=== PATIENT | female | born 1985 | race American Indian/Alaskan Native ===

== ENCOUNTER 2019-09-02 19:03 | Emergency (ER) | payer OTHER ==
--- NOTE | 2019-09-02 20:28 | Event Note ---
ED Screening Note Date of service: 09/02/19 Time: 20:24 ED Screening Note: 33 yo female present to ER c/o pain under right breast pain x 3 days. No known falls or injuries. No coughing fever or sob. Dx with HTN many years ago. Not taking any medications. Blood pressure 234/143. Denies headache dizziness or blurry vision. This initial assessment/diagnostic orders/clinical plan/treatment(s) is/are subject to change based on patients health status, clinical progression and re- assessment by fellow clinical providers in the ED. Further treatment and workup at subsequent clinical providers discretion. Patient/guardian urged not to elope from the ED as their condition may be serious if not clinically assessed and managed. Initial orders include: CBC,CMP IV,
[2019-09-02 21:16] LABS: Hematocrit 42.3 % (30.3-42.9); Hemoglobin 14.7 gm/dl (10.1-14.3); Mean Corpuscular HGB Conc 35 % (30-34); Mean Corpuscular Volume 85 fl (79-97); Platelet Count 296 K/mm3 (140-440); Red Blood Count 4.95 M/mm3 (3.65-5.03); Red Cell Distribution Width 13.8 % (13.2-15.2)
[2019-09-02 21:35] LABS: Alanine Aminotransferase 16 units/L (7-56); Albumin 3.8 g/dL (3.9-5); BUN/Creatinine Ratio 15; Blood Urea Nitrogen 9 mg/dL (7-17); Calcium 9.5 mg/dL (8.4-10.2); Hemolysis Index 28
[2019-09-02] MEDS ORDERED: INSULIN REGULAR, HUMAN 100 UNITS/1 ML IV ONE (21:50)
[2019-09-02] MEDS ORDERED: hydrALAZINE 20 MG/1 ML INJ IV ONE (21:50)
[2019-09-02] MEDS ORDERED: SODIUM CHLORIDE 0.9% 500 ML 500 ML IV ONE (21:50)
[2019-09-02] MEDS ORDERED: ACETAMINOPHEN 500 MG TAB PO ONE (21:50)
[2019-09-02] MEDS ORDERED: POTASSIUM CHLORIDE ER 20 MEQ TAB PO ONE (21:52)
--- NOTE | 2019-09-02 21:56 | Emergency Department Report ---
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 She is not known to this provider previously. She does not believe that she is . She states that she does not have a local primary care doctor. Past medical history includes hypertension and diabetes. Noncompliant with medications for months. Presents to the ER today with complaint of nontraumatic right lateral thoracic and right upper quadrant pain, intermittent for a few days, and sensation of hea rt beating and heart racing. Also endorses cough and yellow mucous. Makes no complaint of headache, neck pain, chest pain, lower abdominal pain. No shortness of breath. No irritative or obstructive urinary symptoms. Denies DVT, pulmonary embolus risk factors. -: Gradual Location: chest, abdomen Radiation: non-radiation Quality: aching Consistency: intermittent Improves with: none Worsens with: none - Related Data Previous Rx's Medication Instructions Recorded Last Taken Type Acetaminophen [Non-Aspirin Extra 500 mg PO Q6HR PRN #30 tablet 09/03/19 Unknown Rx Strength] Albuterol Sulfate [Proair 90 mcg IH Q4HR PRN #2 aer.[email or web address] 09/03/19 Unknown Rx Respiclick] Amlodipine Besylate [Norvasc] 5 mg PO QDAY #30 tablet 09/03/19 Unknown Rx Ibuprofen [Motrin] 600 mg PO Q8H PRN #30 tablet 09/03/19 Unknown Rx Allergies Allergy/AdvReac Type Severity Reaction Status Date / Time No Known Allergies Allergy Verified 09/02/19 19:47 ED Review of Systems ROS: Stated complaint: PALPITATION/RT UPPER RIB PAIN Other details as noted in HPI Constitutional: malaise. denies: fever Eyes: denies: eye discharge ENT: denies: congestion Respiratory: cough Cardiovascular: palpitations Gastrointestinal: abdominal pain. denies: nausea, vomiting Genitourinary: denies: dysuria Musculoskeletal: denies: myalgia Skin: denies: lesions Neurological: denies: weakness Psychiatric: anxiety ED Past Medical Hx - Past Medical History Previous Medical History?: Yes Hx Hypertension: Yes (doesn't take medications) - Surgical History Past Surgical History?: Yes Additional Surgical History: c-sections x 3 - Social History Smoking Status: Never Smoker Substance Use Type: Alcohol - Medications Home Medications: Home Medications Medication Instructions Recorded Confirmed Last Taken Type Acetaminophen [Non-Aspirin Extra 500 mg PO Q6HR PRN #30 tablet 09/03/19 Unknown Rx Strength] Albuterol Sulfate [Proair 90 mcg IH Q4HR PRN #2 aer.[email or web address] 09/03/19 Unknown Rx Respiclick] Amlodipine Besylate [Norvasc] 5 mg PO QDAY #30 tablet 09/03/19 Unknown Rx Ibuprofen [Motrin] 600 mg PO Q8H PRN #30 tablet 09/03/19 Unknown Rx ED Physical Exam - General Limitations: No Limitations General appearance: alert, anxious, obese - Head Head exam: Present: atraumatic, normocephalic - Eye Eye exam: Present: normal appearance, EOMI. Absent: nystagmus - ENT ENT exam: Present: normal exam, normal orophraynx, mucous membranes moist, normal external ear exam - Neck Neck exam: Present: normal inspection, full ROM. Absent: tenderness, meningismus - Respiratory Respiratory exam: Present: normal lung sounds bilaterally. Absent: respiratory distress, wheezes, rales, rhonchi, stridor - Cardiovascular Cardiovascular Exam: Present: normal rhythm, tachycardia, normal heart sounds. Absent: systolic murmur, diastolic murmur, rubs, gallop - GI/Abdominal GI/Abdominal exam: Present: soft. Absent: distended, tenderness, guarding, rebound, rigid, pulsatile mass - Extremities Exam Extremities exam: Present: normal inspection, full ROM, other (2+ pulses noted in the bilateral upper and lower extremities. There is no palpable cord. negative Homans sign. Muscular compartments are soft. The pelvis is stable.). Absent: pedal edema, joint swelling, calf tenderness - Back Exam Back exam: Present: normal inspection, full ROM. Absent: tenderness, CVA tenderness (R), paraspinal tenderness, vertebral tenderness - Neurological Exam Neurological exam: Present: alert, normal gait, other (there is no facial droop. The tongue is midline. The extraocular movements are intact bilaterally. Speaking in full sentences. Minimal elevation of the base of the tongue. There is 5 out of 5 strength in the bilateral upper and lower extremities, and sensation is intact to light touch in the bilateral upper and lower extremities. Appropriate insight.). Absent: motor sensory deficit - Psychiatric Psychiatric exam: Present: anxious - Skin Skin exam: Present: warm, dry, intact, normal color. Absent: rash ED Course Vital Signs 09/02/19 09/02/19 09/02/19 20:21 22:15 22:48 Temperature 98.4 F Pulse Rate 102 H 102 H 104 H Respiratory 18 15 Rate Blood Pressure 234/143 262/158 Blood Pressure 224/130 [Left] O2 Sat by Pulse 96 98 Oximetry 09/02/19 09/02/19 09/03/19 23:20 23:55 00:30 Temperature Pulse Rate 95 H 101 H 93 H Respiratory 16 20 Rate Blood Pressure Blood Pressure 192/117 193/116 187/118 [Left] O2 Sat by Pulse 99 97 Oximetry - Reevaluation(s) Reevaluation #1: 09/02/19 23:47 Differential diagnosis, including but not limited to: Bronchitis, arrhythmia, electrolyte derangement, thyroid derangement, pneumonia, pulmonary embolism, urinary tract infection, biliary colic, pyelonephritis, costochondritis Assessment and plan: 33-year-old female with the primary complaint of nontraumatic right lateral thoracic pain, and palpitations. She is afebrile, hypertensive markedly, as well as tachycardic. She appears to be fairly anxious. Given extreme hypertension, CT scan of the chest will be obtained to exclude pulmonary embolism, as well as aortic disease. Given extreme hypertension, CT scan abdomen pelvis will be obtained to evaluate for AAA, and other vascular emergencies. Vital signs improved after hydralazine. Patient appears comfortable at this time. Laboratory studies reviewed and appreciated. Potassium supplementation has been ordered. Reevaluation #2: 09/03/19 00:57 CT scan of the chest is negative for acute disease. CT scan of the abdomen pelvis is negative for acute disease. Hyperglycemia improved. Hypertension improved. Patient does not appear to have an emergent medical condition at this time. She will need to follow up with an outpatient primary care doctor for her presumed chronic hypertension and diabetes ED Medical Decision Making - Lab Data Result diagrams: 09/02/19 20:42 09/02/19 20:42 Vital Signs 09/02/19 09/02/19 09/02/19 20:21 22:15 22:48 Temperature 98.4 F Pulse Rate 102 H 102 H 104 H Respiratory 18 15 Rate Blood Pressure 234/143 262/158 Blood Pressure 224/130 [Left] O2 Sat by Pulse 96 98 Oximetry 09/02/19 23:20 Temperature Pulse Rate 95 H Respiratory 16 Rate Blood Pressure Blood Pressure 192/117 [Left] O2 Sat by Pulse 99 Oximetry Lab Results 09/02/19 09/02/19 09/02/19 Range/Units 20:42 20:42 21:56 WBC 5.6 (4.5-11.0) K/mm3 RBC 4.95 (3.65-5.03) M/mm3 Hgb 14.7 H (10.1-14.3) gm/dl Hct 42.3 (30.3-42.9) % MCV 85 (79-97) fl MCH 30 (28-32) pg MCHC 35 H (30-34) % RDW 13.8 (13.2-15.2) % Plt Count 296 (140-440) K/mm3 PT 12.4 (12.2-14.9) Sec. INR 0.92 (0.87-1.13) APTT 27.0 (24.2-36.6) Sec. D-Dimer (0-234) ng/mlDDU Sodium 136 L (137-145) mmol/L Potassium 3.2 L (3.6-5.0) mmol/L Chloride 95.6 L (98-107) mmol/L Carbon Dioxide 27 (22-30) mmol/L Anion Gap 17 mmol/L BUN 9 (7-17) mg/dL Creatinine 0.6 L (0.7-1.2) mg/dL Estimated GFR > 60 ml/min BUN/Creatinine Ratio 15 % Glucose 358 H (65-100) mg/dL Calcium 9.5 (8.4-10.2) mg/dL Magnesium (1.7-2.3) mg/dL Total Bilirubin 0.40 (0.1-1.2) mg/dL AST 14 (5-40) units/L ALT 16 (7-56) units/L Alkaline Phosphatase 94 (35-129) units/L Total Creatine Kinase (30-135) units/L Total Protein 7.0 (6.3-8.2) g/dL Albumin 3.8 L (3.9-5) g/dL Albumin/Globulin Ratio 1.2 % TSH (0.270-4.200) mlU/mL Free T4 (0.76-1.46) ng/dL HCG, Quant (0-4) mIU/mL Urine Color (Yellow) Urine Turbidity (Clear) Urine pH (5.0-7.0) Ur Specific [place] (1.003-1.030) Urine Protein (Negative) mg/dL Urine Glucose (UA) (Negative) mg/dL Urine Ketones (Negative) mg/dL Urine Blood (Negative) Urine Nitrite (Negative) Urine Bilirubin (Negative) Urine Urobilinogen (<2.0) mg/dL Ur Leukocyte Esterase (Negative) Urine WBC (Auto) (0.0-6.0) /HPF Urine RBC (Auto) (0.0-6.0) /HPF U Epithel Cells (Auto) (0-13.0) /HPF Urine Mucus /HPF Urine HCG, Qual (Negative) 09/02/19 09/02/19 09/02/19 Range/Units 21:56 21:56 21:56 WBC (4.5-11.0) K/mm3 RBC (3.65-5.03) M/mm3 Hgb (10.1-14.3) gm/dl Hct (30.3-42.9) % MCV (79-97) fl MCH (28-32) pg MCHC (30-34) % RDW (13.2-15.2) % Plt Count (140-440) K/mm3 PT (12.2-14.9) Sec. INR (0.87-1.13) APTT (24.2-36.6) Sec. D-Dimer (0-234) ng/mlDDU Sodium (137-145) mmol/L Potassium (3.6-5.0) mmol/L Chloride (98-107) mmol/L Carbon Dioxide (22-30) mmol/L Anion Gap mmol/L BUN (7-17) mg/dL Creatinine (0.7-1.2) mg/dL Estimated GFR ml/min BUN/Creatinine Ratio % Glucose (65-100) mg/dL Calcium (8.4-10.2) mg/dL Magnesium 1.80 (1.7-2.3) mg/dL Total Bilirubin (0.1-1.2) mg/dL AST (5-40) units/L ALT (7-56) units/L Alkaline Phosphatase (35-129) units/L Total Creatine Kinase 64 (30-135) units/L Total Protein (6.3-8.2) g/dL Albumin (3.9-5) g/dL Albumin/Globulin Ratio % TSH 1.370 (0.270-4.200) mlU/mL Free T4 1.22 (0.76-1.46) ng/dL HCG, Quant (0-4) mIU/mL Urine Color (Yellow) Urine Turbidity (Clear) Urine pH (5.0-7.0) Ur Specific [place] (1.003-1.030) Urine Protein (Negative) mg/dL Urine Glucose (UA) (Negative) mg/dL Urine Ketones (Negative) mg/dL Urine Blood (Negative) Urine Nitrite (Negative) Urine Bilirubin (Negative) Urine Urobilinogen (<2.0) mg/dL Ur Leukocyte Esterase (Negative) Urine WBC (Auto) (0.0-6.0) /HPF Urine RBC (Auto) (0.0-6.0) /HPF U Epithel Cells (Auto) (0-13.0) /HPF Urine Mucus /HPF Urine HCG, Qual (Negative) 09/02/19 09/02/19 09/02/19 Range/Units 21:56 21:56 Unknown WBC (4.5-11.0) K/mm3 RBC (3.65-5.03) M/mm3 Hgb (10.1-14.3) gm/dl Hct (30.3-42.9) % MCV (79-97) fl MCH (28-32) pg MCHC (30-34) % RDW (13.2-15.2) % Plt Count (140-440) K/mm3 PT (12.2-14.9) Sec. INR (0.87-1.13) APTT (24.2-36.6) Sec. D-Dimer 182.2 (0-234) ng/mlDDU Sodium (137-145) mmol/L Potassium (3.6-5.0) mmol/L Chloride (98-107) mmol/L Carbon Dioxide (22-30) mmol/L Anion Gap mmol/L BUN (7-17) mg/dL Creatinine (0.7-1.2) mg/dL Estimated GFR ml/min BUN/Creatinine Ratio % Glucose (65-100) mg/dL Calcium (8.4-10.2) mg/dL Magnesium (1.7-2.3) mg/dL Total Bilirubin (0.1-1.2) mg/dL AST (5-40) units/L ALT (7-56) units/L Alkaline Phosphatase (35-129) units/L Total Creatine Kinase (30-135) units/L Total Protein (6.3-8.2) g/dL Albumin (3.9-5) g/dL Albumin/Globulin Ratio % TSH (0.270-4.200) mlU/mL Free T4 (0.76-1.46) ng/dL HCG, Quant < 2 (0-4) mIU/mL Urine Color Yellow (Yellow) Urine Turbidity Clear (Clear) Urine pH 7.0 (5.0-7.0) Ur Specific [place] 1.027 (1.003-1.030) Urine Protein 30 mg/dl (Negative) mg/dL Urine Glucose (UA) >=500 (Negative) mg/dL Urine Ketones Neg (Negative) mg/dL Urine Blood Lg (Negative) Urine Nitrite Neg (Negative) Urine Bilirubin Neg (Negative) Urine Urobilinogen < 2.0 (<2.0) mg/dL Ur Leukocyte Esterase Tr (Negative) Urine WBC (Auto) 13.0 H (0.0-6.0) /HPF Urine RBC (Auto) > 182.0 (0.0-6.0) /HPF U Epithel Cells (Auto) 8.0 (0-13.0) /HPF Urine Mucus Few /HPF Urine HCG, Qual Negative (Negative) - EKG Data -: EKG Interpreted by Ne Rate: tachycardia - EKG Data When compared to previous EKG there are: previous EKG unavailable 09/02/19 23:47 There is no prior EKG available for comparison. The EKG shows sinus tachycardia, 101 bpm, left axis deviation, left anterior fascicular block, QTC is prolonged, motion artifact, abnormal EKG, high left ventricular voltage, not consistent with ST elevation myocardial infarction. - Radiology Data Radiology results: report reviewed, image reviewed xr chest within normal limits Critical care attestation.: If time is entered above; I have spent that time in minutes in the direct care of this critically ill patient, excluding procedure time. ED Disposition Clinical Impression: Elevated blood pressure reading, Hyperglycemia, Palpitations, Rib pain on right side Disposition: DC- TO HOME OR SELFCARE Is pt being admited?: No Does the pt Need Aspirin: No Condition: Stable Additional Instructions: We will recommend that the patient follow-up with the primary care doctor within the next 3-4 weeks. Recommend exercise as tolerated, and modification of diet to avoid consumption of simple carbohydrates, sugar, and starch. Recommend weight loss as tolerated. Patient may reference the [place] diabetes Association website for specific recommendations on how to modify diet. Patient may take the pain medicine and cough medicine as needed. 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 Recommend aggressive weight loss, and gradual decrease of blood pressure. Patient was found to have elevated blood pressure and high blood sugar in the emergency room, which over long-term. Of time if not controlled may put the patient at risk for heart attack, stroke, disability, paralysis, loss of quality of life. Do not take metformin medication for the next 2 days, if patient takes this medication. Return to the emergency room right away with new, worsening or different symptoms, or symptoms not present on the initial emergency room evaluation. Referrals: [facility] [Provider Group] - 3-5 Days [facility] [Provider Group] - 3-5 Days [facility] [Provider Group] - 3-5 Days
[2019-09-02 22:01] LABS: Bilirubin,Urine NEG (Negative); Blood,Urine LG (Negative); Color,Urine Yellow (Yellow); Mucus,Urine FEW /HPF; Urobilinogen,Urine < 2.0 mg/dL (<2.0)
[2019-09-02 22:02] LABS: RBC,Urine > 182.0 /HPF (0.0-6.0)
[2019-09-02 22:03] LABS: HCG Qualitative,Urine Negative (Negative)
[2019-09-02 22:32] LABS: INR 0.92 (0.87-1.13)
[2019-09-02] MEDS: POTASSIUM CHLORIDE 10 MEQ 10 MEQ/100 ML BAG IV SCH ×2 (22:40→23:54)
--- NOTE | 2019-09-02 22:46 | XRay Report ---
CHEST 2 VIEWS INDICATION / CLINICAL INFORMATION: ruq pain cough tachycardia. COMPARISON: None available. FINDINGS: SUPPORT DEVICES: None. HEART / MEDIASTINUM: No significant abnormality. LUNGS / PLEURA: No significant pulmonary or pleural abnormality. No pneumothorax. ADDITIONAL FINDINGS: No significant additional findings. IMPRESSION: No significant abnormality Signer Name: Meliton Gallagher MD FACR Signed: 09/02/2019 10:41 PM Workstation Name: [id number]
[2019-09-02] MEDS ORDERED: SODIUM CHLORIDE 0.9% 1000 ML 1,000 ML ONE (23:20)
[2019-09-02] MEDS ORDERED: SODIUM CHLORIDE 0.9% 1000 ML 1,000 ML IV SCH (23:30)
--- NOTE | 2019-09-03 00:40 | Cat Scan Report ---
CT angiography of the chest with 2-D reconstructions INDICATION: Right-sided chest pain Thin section axial images were obtained as well as 2-D reformatted MIP images in all 3 planes FINDINGS: There is no hilar or mediastinal adenopathy. No pleural or pericardial effusion. Lung windo ws show no nodules, masses or infiltrates. There is no thoracic aortic aneurysm or dissection present . Routine axial images as well as 2-D reconstructions through the pulmonary arteries show no evidence of emboli. IMPRESSION: Negative chest CTA CT of the abdomen and pelvis with contrast INDICATION: Right upper quadrant pain FINDINGS: The liver, spleen, pancreas, adrenal glands and kidneys all appear normal. No definite gall bladder or biliary tree abnormality. No fluid or adenopathy in the upper abdomen. No gastric or duode nal wall thickening. The appendix is seen in the right upper quadrant and is normal. No fluid or wilfred opathy in the upper abdomen CT of the pelvis shows small follicular cysts in the left ovary. The right ovary contains a 2.[address] without free fluid. No hernia or bowel obstruction. No significant skeletal lesion. IMPRESSION: Right ovarian cyst without free fluid. The appendix is normal and there is no definite ga llbladder abnormality. Automated exposure control was utilized to diminish radiation dose. Signer Name: Estevan Moreno MD Signed: 09/03/2019 12:35 AM Workstation Name: [id number]
[2019-09-03] MEDS: POTASSIUM CHLORIDE 10 MEQ 10 MEQ/100 ML BAG IV SCH (01:09)
[2019-09-03 01:28] VITALS: BP 197/133
== END 2019-09-03 02:23 | disposition home or self-care (01) ==
LOC: ED 19:03
DX: R07.2 Precordial pain (principal); R00.2 Palpitations; E11.65 Type 2 diabetes mellitus with hyperglycemia; I10 Essential (primary) hypertension; Z79.899 Other long term (current) drug therapy
CPT/HCPCS: 36415; 71046; 71275; 74177; 80053; 81001; 81025; 82550; 82962; 83735; 84439; 84443; 84702; 85027; 85379; 85610; 85730; 87086; 93005; 93010; 96361; 96374; 96375; 99285; J0360; J3480; J7030; J7040; Q9967; J1815

== ENCOUNTER 2020-07-29 19:18 | Emergency (ER) | payer OTHER ==
[2020-07-29 19:56] VITALS: BP 228/148
[2020-07-29 20:39] LABS: Bacteria,Urine 1+ /HPF (Negative); Bilirubin,Urine NEG (Negative); Blood,Urine MOD (Negative); Color,Urine Yellow (Yellow); Mucus,Urine FEW /HPF; Urobilinogen,Urine < 2.0 mg/dL (<2.0)
[2020-07-29 20:45] LABS: Basophils # (Auto) 0.1 K/mm3 (0.0-0.1); Basophils % (Auto) 0.8 % (0.0-1.8); Eosinophils # (Auto) 0.1 K/mm3 (0.0-0.4); Eosinophils % (Auto) 0.8 % (0.0-4.3); Hematocrit 43.8 % (30.3-42.9); Hemoglobin 15.1 gm/dl (10.1-14.3); Lymphocytes # (Auto) 1.8 K/mm3 (1.2-5.4); Lymphocytes % (Auto) 22.5 % (13.4-35.0); Mean Corpuscular HGB Conc 35 % (30-34); Mean Corpuscular Volume 86 fl (79-97); Monocytes # (Auto) 0.5 K/mm3 (0.0-0.8); Monocytes % (Auto) 5.9 % (0.0-7.3); Platelet Count 344 K/mm3 (140-440); Red Blood Count 5.11 M/mm3 (3.65-5.03); Red Cell Distribution Width 14.2 % (13.2-15.2)
[2020-07-29 20:46] LABS: Protein,Urine >500 mg/dL (Negative)
[2020-07-29 21:08] LABS: Alanine Aminotransferase 18 units/L (7-56); Albumin 3.8 g/dL (3.9-5); Blood Urea Nitrogen 10 mg/dL (7-17); Calcium 9.6 mg/dL (8.4-10.2); Hemolysis Index 10
[2020-07-29 21:09] LABS: BUN/Creatinine Ratio 14
[2020-07-30] MEDS ORDERED: traMADol 50 MG TAB PO ONE (00:43)
[2020-07-30] MEDS ORDERED: cephALEXin 500 MG CAP PO ONE (00:43)
--- NOTE | 2020-07-30 00:48 | Emergency Department Report ---
ED General Adult HPI - General Chief complaint: Abdominal Pain Stated complaint: RT SIDE PAIN Time Seen by Provider: 07/30/20 00:20 Source: patient Mode of arrival: Stretcher Limitations: No Limitations - History of Present Illness Initial comments: Patient presents to the emergency department with a chief complaint of lower abdominal pain and difficulty with urination that has been present for the last day. Patient describes the pain as a fullness/sharpness. Patient denies a fever at home. Patient has no complaints -: Sudden Location: abdomen Radiation: non-radiation Severity scale (0 -10): 4 Quality: burning, sharp Consistency: constant Improves with: none Worsens with: none Associated Symptoms: denies other symptoms Treatments Prior to Arrival: none - Related Data Previous Rx's Medication Instructions Recorded Last Taken Type Albuterol Sulfate [Proair 90 mcg IH Q4HR PRN #2 [email or web address] 06/08/20 Unknown Rx Respiclick] Insulin NPH, Human [NovoLIN N] 20 unit SUB-Q BIDDIAB #1 vial 06/08/20 Unknown Rx Insulin Regular, Human [HumuLIN R] 0 unit SUB-Q ACHS #1 vial 06/08/20 Unknown Rx Losartan [Cozaar] 100 mg PO QDAY #30 tablet 06/08/20 Unknown Rx amLODIPine 10 mg PO QDAY #60 tablet 06/08/20 Unknown Rx carvediloL [Coreg] 6.25 mg PO BID #90 tablet 06/08/20 Unknown Rx levoFLOXacin [Levaquin] 750 mg PO QDAY #5 tablet 06/08/20 Unknown Rx metFORMIN [Glucophage] 850 mg PO BID #90 tablet 06/08/20 Unknown Rx cephALEXin [Keflex] 500 mg PO BID #14 capsule 07/30/20 Unknown Rx traMADoL [Ultram] 50 mg PO Q6HR PRN #24 tablet 07/30/20 Unknown Rx Allergies Allergy/AdvReac Type Severity Reaction Status Date / Time No Known Allergies Allergy Verified 09/02/19 19:47 ED Review of Systems ROS: Stated complaint: RT SIDE PAIN Other details as noted in HPI Comment: All other systems reviewed and negative Constitutional: denies: chills, fever Eyes: denies: eye pain, eye discharge, vision change ENT: denies: ear pain, throat pain Respiratory: denies: cough, shortness of breath, wheezing Cardiovascular: denies: chest pain, palpitations Endocrine: no symptoms reported Gastrointestinal: abdominal pain. denies: nausea, diarrhea Genitourinary: dysuria. denies: urgency, discharge Musculoskeletal: denies: back pain, joint swelling, arthralgia Skin: denies: rash, lesions Neurological: denies: headache, weakness, paresthesias Psychiatric: denies: anxiety, depression Hematological/Lymphatic: denies: easy bleeding, easy bruising ED Past Medical Hx - Past Medical History Previous Medical History?: Yes Hx Hypertension: Yes Hx Diabetes: Yes - Surgical History Past Surgical History?: Yes Additional Surgical History: c-sections x 3 - Social History Smoking Status: Never Smoker - Medications Home Medications: Home Medications Medication Instructions Recorded Confirmed Last Taken Type Albuterol Sulfate [Proair 90 mcg IH Q4HR PRN #2 aer.[email or web address] 06/08/20 Unknown Rx Respiclick] Insulin NPH, Human [NovoLIN N] 20 unit SUB-Q BIDDIAB #1 vial 06/08/20 Unknown Rx Insulin Regular, Human [HumuLIN R] 0 unit SUB-Q ACHS #1 vial 06/08/20 Unknown Rx Losartan [Cozaar] 100 mg PO QDAY #30 tablet 06/08/20 Unknown Rx amLODIPine 10 mg PO QDAY #60 tablet 06/08/20 Unknown Rx carvediloL [Coreg] 6.25 mg PO BID #90 tablet 06/08/20 Unknown Rx levoFLOXacin [Levaquin] 750 mg PO QDAY #5 tablet 06/08/20 Unknown Rx metFORMIN [Glucophage] 850 mg PO BID #90 tablet 06/08/20 Unknown Rx cephALEXin [Keflex] 500 mg PO BID #14 capsule 07/30/20 Unknown Rx traMADoL [Ultram] 50 mg PO Q6HR PRN #24 tablet 07/30/20 Unknown Rx ED Physical Exam - General Limitations: No Limitations General appearance: alert, in no apparent distress - Head Head exam: Present: atraumatic, normocephalic - Eye Eye exam: Present: normal appearance, PERRL, EOMI - ENT ENT exam: Present: mucous membranes moist - Neck Neck exam: Present: normal inspection - Respiratory Respiratory exam: Present: normal lung sounds bilaterally. Absent: respiratory distress - Cardiovascular Cardiovascular Exam: Present: regular rate, normal rhythm. Absent: systolic murmur, diastolic murmur, rubs, gallop - GI/Abdominal GI/Abdominal exam: Present: soft, tenderness (Tenderness palpation suprapubic region), normal bowel sounds. Absent: distended - Extremities Exam Extremities exam: Present: normal inspection - Back Exam Back exam: Present: normal inspection - Neurological Exam Neurological exam: Present: alert, oriented X3 - Psychiatric Psychiatric exam: Present: normal affect, normal mood - Skin Skin exam: Present: warm, dry, intact, normal color. Absent: rash ED Course Vital Signs 07/29/20 07/29/20 19:55 19:56 Temperature 98.1 F Pulse Rate 100 H Respiratory 18 Rate Blood Pressure 228/148 O2 Sat by Pulse 91 Oximetry ED Medical Decision Making - Lab Data Result diagrams: 07/29/20 20:05 07/29/20 20:05 Lab Results 07/29/20 07/29/20 07/29/20 Range/Units 20:05 20:05 20:05 WBC 8.2 (4.5-11.0) K/mm3 RBC 5.11 H (3.65-5.03) M/mm3 Hgb 15.1 H (10.1-14.3) gm/dl Hct 43.8 H (30.3-42.9) % MCV 86 (79-97) fl MCH 30 (28-32) pg MCHC 35 H (30-34) % RDW 14.2 (13.2-15.2) % Plt Count 344 (140-440) K/mm3 Lymph % (Auto) 22.5 (13.4-35.0) % Hartley % (Auto) 5.9 (0.0-7.3) % Eos % (Auto) 0.8 (0.0-4.3) % Baso % (Auto) 0.8 (0.0-1.8) % Lymph # (Auto) 1.8 (1.2-5.4) K/mm3 Hartley # (Auto) 0.5 (0.0-0.8) K/mm3 Eos # (Auto) 0.1 (0.0-0.4) K/mm3 Baso # (Auto) 0.1 (0.0-0.1) K/mm3 Seg Neutrophils % 70.0 (40.0-70.0) % Seg Neutrophils # 5.7 (1.8-7.7) K/mm3 Sodium 135 L (137-145) mmol/L Potassium 3.0 L (3.6-5.0) mmol/L Chloride 95.1 L (98-107) mmol/L Carbon Dioxide 30 (22-30) mmol/L Anion Gap 13 mmol/L BUN 10 (7-17) mg/dL Creatinine 0.7 (0.6-1.2) mg/dL Estimated GFR > 60 ml/min BUN/Creatinine Ratio 14 % Glucose 249 H (65-100) mg/dL Calcium 9.6 (8.4-10.2) mg/dL Total Bilirubin 0.60 (0.1-1.2) mg/dL AST 14 (5-40) units/L ALT 18 (7-56) units/L Alkaline Phosphatase 90 (35-129) units/L Total Protein 6.9 (6.3-8.2) g/dL Albumin 3.8 L (3.9-5) g/dL Albumin/Globulin Ratio 1.2 % Lipase 21 (13-60) units/L HCG, Qual Negative (Negative) Urine Color (Yellow) Urine Turbidity (Clear) Urine pH (5.0-7.0) Ur Specific Aurelia (1.003-1.030) Urine Protein (Negative) mg/dL Urine Glucose (UA) (Negative) mg/dL Urine Ketones (Negative) mg/dL Urine Blood (Negative) Urine Nitrite (Negative) Urine Bilirubin (Negative) Urine Urobilinogen (<2.0) mg/dL Ur Leukocyte Esterase (Negative) Urine WBC (Auto) (0.0-6.0) /HPF Urine RBC (Auto) (0.0-6.0) /HPF U Epithel Cells (Auto) (0-13.0) /HPF Urine Bacteria (Auto) (Negative) /HPF Urine Mucus /HPF Urine Yeast (Budding) /HPF 07/29/20 Range/Units Unknown WBC (4.5-11.0) K/mm3 RBC (3.65-5.03) M/mm3 Hgb (10.1-14.3) gm/dl Hct (30.3-42.9) % MCV (79-97) fl MCH (28-32) pg MCHC (30-34) % RDW (13.2-15.2) % Plt Count (140-440) K/mm3 Lymph % (Auto) (13.4-35.0) % Hartley % (Auto) (0.0-7.3) % Eos % (Auto) (0.0-4.3) % Baso % (Auto) (0.0-1.8) % Lymph # (Auto) (1.2-5.4) K/mm3 Hartley # (Auto) (0.0-0.8) K/mm3 Eos # (Auto) (0.0-0.4) K/mm3 Baso # (Auto) (0.0-0.1) K/mm3 Seg Neutrophils % (40.0-70.0) % Seg Neutrophils # (1.8-7.7) K/mm3 Sodium (137-145) mmol/L Potassium (3.6-5.0) mmol/L Chloride (98-107) mmol/L Carbon Dioxide (22-30) mmol/L Anion Gap mmol/L BUN (7-17) mg/dL Creatinine (0.6-1.2) mg/dL Estimated GFR ml/min BUN/Creatinine Ratio % Glucose (65-100) mg/dL Calcium (8.4-10.2) mg/dL Total Bilirubin (0.1-1.2) mg/dL AST (5-40) units/L ALT (7-56) units/L Alkaline Phosphatase (35-129) units/L Total Protein (6.3-8.2) g/dL Albumin (3.9-5) g/dL Albumin/Globulin Ratio % Lipase (13-60) units/L HCG, Qual (Negative) Urine Color Yellow (Yellow) Urine Turbidity Cloudy (Clear) Urine pH 7.0 (5.0-7.0) Ur Specific Aurelia 1.013 (1.003-1.030) Urine Protein >500 (Negative) mg/dL Urine Glucose (UA) >=500 (Negative) mg/dL Urine Ketones Neg (Negative) mg/dL Urine Blood Mod (Negative) Urine Nitrite Pos (Negative) Urine Bilirubin Neg (Negative) Urine Urobilinogen < 2.0 (<2.0) mg/dL Ur Leukocyte Esterase Mod (Negative) Urine WBC (Auto) 84.0 H (0.0-6.0) /HPF Urine RBC (Auto) 39.0 (0.0-6.0) /HPF U Epithel Cells (Auto) 4.0 (0-13.0) /HPF Urine Bacteria (Auto) 1+ (Negative) /HPF Urine Mucus Few /HPF Urine Yeast (Budding) 2+ /HPF - Medical Decision Making Discussed results with patient Critical care attestation.: If time is entered above; I have spent that time in minutes in the direct care of this critically ill patient, excluding procedure time. ED Disposition Clinical Impression: UTI (urinary tract infection), Abdominal pain Disposition: TO HOME OR SELFCARE Is pt being admited?: No Does the pt Need Aspirin: No Condition: Stable Instructions: Abdominal Pain (ED), Urinary Tract Infection, Adult, Abdominal Pain, Adult Referrals: [facility] ROSPEARSON MD NANCIE [Primary Care Provider] - 3-5 Days SH[place]Y [facility] MD [Staff Physician] - 3-5 Days Time of Disposition: 00:46
== END 2020-07-30 01:44 | disposition home or self-care (01) ==
LOC: ED 19:18
DX: N39.0 Urinary tract infection, site not specified (principal); R10.30 Lower abdominal pain, unspecified; I10 Essential (primary) hypertension; E11.9 Type 2 diabetes mellitus without complications; Z98.890 Other specified postprocedural states; Z79.4 Long term (current) use of insulin; Z79.899 Other long term (current) drug therapy
CPT/HCPCS: 36415; 80053; 81001; 83690; 84703; 85025; 87076; 87086; 87186